=== PATIENT | male | born 2000 | race Hispanic/Latino ===

== ENCOUNTER 2022-06-17 11:07 | Emergency (ER) | payer OTHER ==
[~2022-06-17] VITALS: Ht 180.3 cm; Wt 86.4 kg
[2022-06-17 14:26] LABS: GC DNA AMPLIFICATION NEGATIVE (NEGATIVE)
[2022-06-17 14:42] VITALS: BP 119/56
== END 2022-06-17 14:54 | disposition home or self-care (01) ==
LOC: M ED 11:07
DX: N50.812 Left testicular pain (principal); F17.210 Nicotine dependence, cigarettes, uncomplicated

== ENCOUNTER 2022-10-03 08:44 | Emergency (ER) | payer OTHER ==
[~2022-10-03] VITALS: Ht 177.8 cm; Wt 91.6 kg
[2022-10-03 13:14] LABS: GC DNA AMPLIFICATION NEGATIVE (NEGATIVE)
[2022-10-03 13:30] VITALS: BP 127/68; TEMP 96.7; O2SAT 100
== END 2022-10-03 13:39 | disposition home or self-care (01) ==
LOC: M ED 08:44
DX: N50.3 Cyst of epididymis (principal); F17.290 Nicotine dependence, other tobacco product, uncomplicated